=== PATIENT | male | born 1965 | race Caucasian/White ===

== ENCOUNTER → 2018-08-19 | Outpatient (CLI) | payer OTHER, MEDICARE ==
[~2018-08-19] MED LIST: GADOBENATE DIMEGLUMINE 1 ML IV ONE
[2018-08-19 15:03] LABS: BLOOD UREA NITROGEN 15 mg/dL (7-26); BUN/CREATININE RATIO 17 (6-25); CREATININE, SERUM 0.86 mg/dL (0.72-1.25); EST GLOMERULAR FILTRATION RATE > 60 ML/MIN (60-)
--- NOTE | 2018-08-19 19:46 | Diagnostic Imaging Report ---
EXAMINATION: MRI of the brain with and without contrast. HISTORY: Seizures and tremors in both hands COMPARISON: None TECHNIQUE: Pre-contrast: Sagittal T1; axial T1-IR, MPGR, DWI, FLAIR; Post-contrast: axial, sagittal, and coronal T1. Thin section coronals of the temporal lobes: FLAIR, T2. Intravenous contrast: 20 mL of MultiHance. IMAGE QUALITY: Adequate. FINDINGS: Mass: None. Enhancement: No abnormal enhancement of the brain or meninges. Encephalomalacia: No areas. Ischemic changes: None. Calcification/iron: No abnormal deposits. Hippocampi: Subtle increased signal and volume loss bilaterally, however the patient was then mild generalized parenchymal volume loss and the fornices are normal. Vascular: No obvious vascular malformation. Normal flow voids in major arteries and veins.[ Johnston matter: No cortical migration anomalies. Other: Brain volume: Mild generalized volume of Ventricles: No hydrocephalus or displacement. Foramen Magnum: Unremarkable. Sella: Unremarkable. Skull: No focal lesions. Sinuses/mastoids: No significant inflammatory disease. IMPRESSION: No mass or migration abnormalities. Subtle increased signal and volume loss of the hippocampi, correlation with EEG is advised. Signed by: Dr. Raquel Rushing M.D. on 08/19/2018 7:42 PM
== END ==
LOC: MRI 13:57 → EDSEX 14:00
PROVIDERS: ATTEND Internal Medicine Gastroenterology
DX: R25.1 Tremor, unspecified (principal); R56.9 Unspecified convulsions
CPT/HCPCS: 36415; 70553; 82565; 84520; A9577

== ENCOUNTER → 2018-08-22 | Day surgery (SDC) | payer OTHER, MEDICARE ==
[~2018-08-22] MED LIST changes: +ABILIFY5 MG PO; +ATORVASTATIN CA20 MG PO; +BENZTROPINE; +BYETTA10 MCG/0.0 SQ; +FENTANYL CITRATE/PF 100MCG/2 ML INJ ONE; +FLUCONAZOLE 200 MG/100 ML 100 ML IV ONE; -GADOBENATE DIMEGLUMINE 1 ML IV ONE; +HYOSCYAMINE 0.125 MG TAB ONE; +INVOKANA SQ; +LEVEMIR SQ; +METFORMIN HCL500 MG PO; +MIDAZOLAM HCL 2 MG/2 ML VIAL ONE; +PRAZOSIN HCL2 MG; +PROPOFOL IV EMULSION 10 MG/ML 50 ML VIAL ONE; +QUETIAPINE FUM100 MG PO; +SERTRALINE HCL100 MG PO
--- OUTSIDE RECORDS SUMMARY | 2018-08-22 09:20 | XMS REPORT | Summary of Care ---
Author Author [facility] Organization [facility] Address Unknown Phone Unavailable Encounter BUD Rubio(SHAW) [id number] Date(s): 02/07/17 - 02/08/17 [facility] [address] [place] [address]- Discharge Diagnosis: Headache Discharge Disposition: Home or Self Care Attending Physician: Beronica Luque DO Vital Signs 1 2 3 Most recent to oldest [Reference Range]: 172.72 cm (02/07/17 10:31 PM) Height 98.4 DegF (02/08/17 3:52 AM) 98.4 DegF (02/07/17 10:31 PM) Temperature Oral [96.4-99.1 DegF] 133/94 mmHg (02/07/17 10:31 PM) Blood Pressure [90-140/60-90 mmHg] 123 mmHg (02/08/17 5:43 AM) 134 mmHg (02/08/17 3:52 AM) Systolic Blood Pressure [90-140 mmHg] 97 mmHg *HI* (02/08/17 5:43 AM) 77 mmHg (02/08/17 3:52 AM) Diastolic Blood Pressure [60-90 mmHg] 18 BRMIN (02/08/17 5:43 AM) 16 BRMIN (02/08/17 3:52 AM) 18 BRMIN (02/07/17 10:31 PM) Respiratory Rate [14-20 BRMIN] 74 bpm (02/08/17 5:43 AM) 66 bpm (02/08/17 3:52 AM) 96 bpm (02/07/17 10:31 PM) Peripheral Pulse Rate [60-100 bpm] 113.636 kg (02/07/17 10:31 PM) Weight 38.09 m2 (02/07/17 10:31 PM) Body Mass Index Problem List Condition Effective Dates Status Health Status Informant DM (diabetes Active mellitus)(Confirmed) HTN Active (hypertension)(Confi rmed) Allergies, Adverse Reactions, Alerts Substance Reaction Severity Status NKDA Active Medications diphenhydrAMINE 12.5 mg, 0.25 mL, Route: IVP, Drug form: INJ, ONCE, Dosing Weight 113.636, kg, P riority: STAT, Start date: 02/07/17 22:38:00 CDT, Stop date: 02/07/17 22:38:00 C DT Notes: (Same as: Benadryl) Start Date: 02/07/17 Stop Date: 02/08/17 Status: Completed ketOROLAC 30 mg, 1 mL, Route: IVP, Drug form: INJ, ONCE, Dosing Weight 113.636, kg, Priori ty: STAT, Start date: 02/07/17 22:38:00 CDT, Stop date: 02/07/17 22:38:00 CDT Notes: (Same as:Toradol) IV bolus must be given >15 seconds. Give IM administration slowly and deeply into the muscle.Not for use > 4 days MEDICATION WASTE Product Size: 30 mgProduct Wasted: ___ mg Start Date: 02/07/17 Stop Date: 02/08/17 Status: Completed Reglan 10 mg, 2 mL, Route: IVP, Drug form: INJ, ONCE, Dosing Weight 113.636, kg, Priori ty: STAT, Start date: 02/07/17 22:38:00 CDT, Stop date: 02/07/17 22:38:00 CDT Notes: (Same as: Reglan) Start Date: 02/07/17 Stop Date: 02/08/17 Status: Completed Saline Flush 0.9% 10 mL, Route: IVP, Drug Form: INJ, kg, PRN, PRN Line Flush, Start date: 02/07/17 22:38:00 CDT, Duration: 30 day, Stop date: 03/09/17 22:37:00 CDT Notes: (Same as: BD Posiflush) Start Date: 02/07/17 Stop Date: 02/08/17 Status: Discontinued Sodium Chloride 0.9% (Bolus) IV 1,000 mL, 1000 ml/hr, Infuse Over: 1 hr, Route: IV, 1,000, Drug form: INJ, ONCE, Priority: STAT, Dosing Weight 113.636 kg, Start date: 02/07/17 22:38:00 CDT, Du ration: 1 doses or times, Stop date: 02/07/17 22:38:00 CDT Start Date: 02/07/17 Stop Date: 02/08/17 Status: Completed Results ELECTROLYTES Most recent to 1 oldest [Reference Range]: Sodium Lvl [135-145 132 mEq/L mEq/L] *LOW* (02/07/17 10:45 PM) Potassium Lvl 4.5 mEq/L [3.5-5.1 mEq/L] (02/07/17 10:45 PM) Chloride Lvl [95-109 99 mEq/L mEq/L] (02/07/17 10:45 PM) CO2 [24-32 mEq/L] 25 mEq/L (02/07/17 10:45 PM) AGAP [10.0-20.0 12.5 mEq/L mEq/L] (02/07/17 10:45 PM) CHEM PANEL Most recent to 1 oldest [Reference Range]: Creatinine Lvl 1.10 mg/dL [0.50-1.40 mg/dL] (02/07/17 10:45 PM) eGFR 77 mL/min/1.73m2 1 *NA* (02/07/17 10:45 PM) BUN [7-22 mg/dL] 11 mg/dL (02/07/17 10:45 PM) B/C Ratio [6-25] 10 (02/07/17 10:45 PM) Glucose Lvl [70-99 322 mg/dL mg/dL] *HI* (02/07/17 10:45 PM) Total Protein 7.5 g/dL [6.4-8.4 g/dL] (02/07/17 10:45 PM) Albumin Lvl [3.5-5.0 3.2 g/dL g/dL] *LOW* (02/07/17 10:45 PM) Globulin [2.7-4.2 4.3 g/dL g/dL] *HI* (02/07/17 10:45 PM) A/G Ratio [0.7-1.6] 0.7 (02/07/17 10:45 PM) Calcium Lvl 8.5 mg/dL [8.5-10.5 mg/dL] (02/07/17 10:45 PM) Phosphorus [2.5-4.5 3.5 mg/dL mg/dL] (02/07/17 10:45 PM) Magnesium Lvl 1.8 mg/dL [1.8-2.4 mg/dL] (02/07/17 10:45 PM) ALT [0-65 unit/L] 38 unit/L (02/07/17 10:45 PM) AST [0-37 unit/L] 25 unit/L (02/07/17 10:45 PM) Alk Phos [39-136 77 unit/L unit/L] (02/07/17 10:45 PM) Bili Total [0.2-1.3 0.4 mg/dL mg/dL] (02/07/17 10:45 PM) Lipase Lvl [73-393 99 unit/L unit/L] (02/07/17 10:45 PM) 1Result Comment: The eGFR is calculated using the CKD-EPI formula. In most young, healthy individuals the eGFR will be >90 mL/min/1.73m2. The eGFR declines with age. An eGFR of 60-89 may be normal in some populations, particularly the elderly, for whom the CKD-EPI formula has not been extensively validated. Use of the eGFR is not recommended in the following populations: Individuals with unstable creatinine concentrations, including patients and those with serious co-morbid conditions. Patients with extremes in muscle mass or diet. The data above are obtained from the National Kidney Disease Education Program ( NKDEP) which additionally recommends that when the eGFR is used in patients with extremes of body mass index for purposes of drug dosing, the eGFR should be mul tiplied by the estimated BMI. CARDIAC ENZYMES Most recent to 1 oldest [Reference Range]: Total CK [12-191 135 unit/L unit/L] (02/07/17 10:45 PM) CK MB [0.5-3.6 2.0 ng/mL ng/mL] (02/07/17 10:45 PM) CK MB Index 1.5 [0.0-2.5] (02/07/17 10:45 PM) Troponin-I <0.02 ng/mL [0.00-0.40 ng/mL] (02/07/17 10:45 PM) HEMATOLOGY Most recent to 1 oldest [Reference Range]: WBC [3.7-10.4 K/CMM] 5.2 K/CMM (02/07/17 10:45 PM) RBC [4.70-6.10 5.92 M/CMM M/CMM] (02/07/17 10:45 PM) Hgb [14.0-18.0 g/dL] 17.1 g/dL (02/07/17 10:45 PM) Hct [42.0-54.0 %] 49.5 % (02/07/17 10:45 PM) MCV [80.0-94.0 fL] 83.6 fL (02/07/17 10:45 PM) MCH [27.0-31.0 pg] 28.9 pg (02/07/17 10:45 PM) MCHC [32.0-36.0 34.6 g/dL g/dL] (02/07/17 10:45 PM) RDW [11.5-14.5 %] 13.5 % (02/07/17 10:45 PM) Platelet [133-450 174 K/CMM K/CMM] (02/07/17 10:45 PM) MPV [7.4-10.4 fL] 9.7 fL (02/07/17 10:45 PM) Segs [45.0-75.0 %] 38.8 % *LOW* (02/07/17 10:45 PM) Lymphocytes 44.2 % [20.0-40.0 %] *HI* (02/07/17 10:45 PM) Monocytes [2.0-12.0 11.4 % %] (02/07/17 10:45 PM) Eosinophils [0.0-4.0 4.5 % %] *HI* (02/07/17 10:45 PM) Basophils [0.0-1.0 1.1 % %] *HI* (02/07/17 10:45 PM) Segs-Bands # 2.0 K/CMM [1.5-8.1 K/CMM] (02/07/17 10:45 PM) Lymphocytes # 2.3 K/CMM [1.0-5.5 K/CMM] (02/07/17 10:45 PM) Monocytes # [0.0-0.8 0.6 K/CMM K/CMM] (02/07/17 10:45 PM) Eosinophils # 0.2 K/CMM [0.0-0.5 K/CMM] (02/07/17 10:45 PM) Basophils # [0.0-0.2 0.1 K/CMM K/CMM] (02/07/17 10:45 PM) Immunizations No data available for this section Procedures Procedure Date Related Diagnosis Body Site Appendectomy Social History Social History Type Response Smoking Status Reg Smoking Cessation Counseling No; Never smoker; Exposure to Tobacco Smoke None; Cigarette Smoking Last 365 Days No Assessment and Plan No data available for this section
--- OUTSIDE RECORDS SUMMARY | 2018-08-22 09:20 | XMS REPORT | Summary of Care ---
Author Author [facility] Organization [facility] Address Unknown Phone Unavailable Encounter BUD Rubio(SHAW) [id number] Date(s): 02/27/17 - 02/28/17 [facility] [address] [place] [address]- [phone] Discharge Diagnosis: Hyperglycemia Discharge Disposition: Home or Self Care Attending Physician: Ammy Alvarez DO Vital Signs Most recent to 1 2 oldest [Reference Range]: Temperature Oral 97.7 DegF 98.2 DegF [96.4-99.1 DegF] (02/28/17 2:55 AM) (02/27/17 9:58 PM) Blood Pressure 126/85 mmHg 143/77 mmHg [90-140/60-90 mmHg] (02/28/17 2:55 AM) *HI* (02/27/17 9:58 PM) Respiratory Rate 18 BRMIN 20 BRMIN [14-20 BRMIN] (02/28/17 2:55 AM) (02/27/17 9:58 PM) Peripheral Pulse 65 bpm 67 bpm Rate [60-100 bpm] (02/28/17 2:55 AM) (02/27/17 9:58 PM) Problem List Condition Effective Dates Status Health Status Informant DM (diabetes Active mellitus)(Confirmed) HTN Active (hypertension)(Confi rmed) Allergies, Adverse Reactions, Alerts Substance Reaction Severity Status NKDA Active Medications Sodium Chloride 0.9% (Bolus) IV 1,000 mL, 1000 ml/hr, Infuse Over: 1 hr, Route: IV, 1,000, Drug form: INJ, ONCE, Priority: STAT, Dosing Weight 113.636 kg, Start date: 02/28/17 1:22:00 CDT, Dur ation: 1 doses or times, Stop date: 02/28/17 1:22:00 CDT Start Date: 02/28/17 Stop Date: 02/28/17 Status: Completed Results ELECTROLYTES Most recent to 1 oldest [Reference Range]: Sodium Lvl [135-145 137 mEq/L mEq/L] (02/28/17 12:49 AM) Potassium Lvl 4.5 mEq/L [3.5-5.1 mEq/L] (02/28/17 12:49 AM) Chloride Lvl [95-109 101 mEq/L mEq/L] (02/28/17 12:49 AM) CO2 [24-32 mEq/L] 30 mEq/L (02/28/17 12:49 AM) AGAP [10.0-20.0 10.5 mEq/L mEq/L] (02/28/17 12:49 AM) CHEM PANEL Most recent to 1 oldest [Reference Range]: Creatinine Lvl 0.93 mg/dL [0.50-1.40 mg/dL] (02/28/17 12:49 AM) eGFR 95 mL/min/1.73m2 1 *NA* (02/28/17 12:49 AM) BUN [7-22 mg/dL] 13 mg/dL (02/28/17 12:49 AM) B/C Ratio [6-25] 14 (02/28/17 12:49 AM) Glucose Lvl [70-99 288 mg/dL mg/dL] *HI* (02/28/17 12:49 AM) Total Protein 8.5 g/dL [6.4-8.4 g/dL] *HI* (02/28/17 12:49 AM) Albumin Lvl [3.5-5.0 3.8 g/dL g/dL] (02/28/17 12:49 AM) Globulin [2.7-4.2 4.7 g/dL g/dL] *HI* (02/28/17 12:49 AM) A/G Ratio [0.7-1.6] 0.8 (02/28/17 12:49 AM) Calcium Lvl 9.3 mg/dL [8.5-10.5 mg/dL] (02/28/17 12:49 AM) ALT [0-65 unit/L] 40 unit/L (02/28/17 12:49 AM) AST [0-37 unit/L] 15 unit/L (02/28/17 12:49 AM) Alk Phos [39-136 92 unit/L unit/L] (02/28/17 12:49 AM) Bili Total [0.2-1.3 0.5 mg/dL mg/dL] (02/28/17 12:49 AM) 1Result Comment: The eGFR is calculated using [...] be mul tiplied by the estimated BMI. HEMATOLOGY Most recent to 1 oldest [Reference Range]: WBC [3.7-10.4 K/CMM] 5.1 K/CMM (02/28/17 12:49 AM) RBC [4.70-6.10 6.50 M/CMM M/CMM] *HI* (02/28/17 12:49 AM) Hgb [14.0-18.0 g/dL] 18.5 g/dL *HI* (02/28/17 12:49 AM) Hct [42.0-54.0 %] 53.3 % (02/28/17 12:49 AM) MCV [80.0-94.0 fL] 82.0 fL (02/28/17 12:49 AM) MCH [27.0-31.0 pg] 28.5 pg (02/28/17 12:49 AM) MCHC [32.0-36.0 34.8 g/dL g/dL] (02/28/17 12:49 AM) RDW [11.5-14.5 %] 13.3 % (02/28/17 12:49 AM) Platelet [133-450 193 K/CMM K/CMM] (02/28/17 12:49 AM) MPV [7.4-10.4 fL] 9.4 fL (02/28/17 12:49 AM) Segs [45.0-75.0 %] 51.7 % (02/28/17 12:49 AM) Lymphocytes 33.6 % [20.0-40.0 %] (02/28/17 12:49 AM) Monocytes [2.0-12.0 10.5 % %] (02/28/17 12:49 AM) Eosinophils [0.0-4.0 3.2 % %] (02/28/17 12:49 AM) Basophils [0.0-1.0 1.0 % %] (02/28/17 12:49 AM) Segs-Bands # 2.7 K/CMM [1.5-8.1 K/CMM] (02/28/17 12:49 AM) Lymphocytes # 1.7 K/CMM [1.0-5.5 K/CMM] (02/28/17 12:49 AM) Monocytes # [0.0-0.8 0.5 K/CMM K/CMM] (02/28/17 12:49 AM) Eosinophils # 0.2 K/CMM [0.0-0.5 K/CMM] (02/28/17 12:49 AM) Basophils # [0.0-0.2 0.1 K/CMM K/CMM] (02/28/17 12:49 AM) Immunizations No data available for this section Procedures Procedure Date Related Diagnosis Body Site Appendectomy Social History Social History Type Response Smoking Status Never smoker; Exposure to Tobacco Smoke None; Cigarette Smoking Last 365 Days No; Reg Smoking Cessation Counseling No Assessment and Plan No data available for this section
--- OUTSIDE RECORDS SUMMARY | 2018-08-22 09:20 | XMS REPORT | Continuity of Care Document ---
Author Author Javi orlando [facility] Interface Address Unknown Phone Unavailable Problems Problem Status Onset Date Classification Date Reported Comments Source Discharge Diagnosis: Otitis externa 03/30/2017 04/02/2017 [facility] EAR PAIN Active 03/29/2017 [facility] Discharge Diagnosis: Hyperglycemia 02/28/2017 03/03/2017 [facility] HYPERGLYCEMIA Active 02/27/2017 [facility] Discharge Diagnosis: Headache 02/08/2017 02/11/2017 [facility] DIZZINESS Active 02/07/2017 [facility] DM (<span ID="[id number]">Confirmed</span>) Active Problem 04/02/2017 [facility] HTN (<span ID="[id number]">Confirmed</span>) Active Problem 04/02/2017 [facility] Medications Medication Details Route Status Patient Instructions Ordering Provider Order Date Source Cipro HC otic suspension 3 drp, RIGHT EAR, BID, X 7 day, # 10 ml, 0 Refill(s) Active 03/30/2017 [facility] Tylenol with Codeine #4 oral tablet 1 - 2 tab, PO, Q6H, PRN Pain, X 3 day, # 20 tab, 0 Refill(s) Active 03/30/2017 [facility] ibuprofen 800 mg oral tablet 800 mg=1 tab, PO, Q6H, PRN Fever or Pain, Take with food, X 10 day, # 40 tab, 0 Refill(s) Active 03/30/2017 [facility] acetaminophen-hydrocodone 325 mg-10 mg oral tablet 1 tab, Route: PO, Dosing Weight 113.636, kg, ONCE, STAT, Start date: 03/30/17 0:36:00 CDT, Stop date: 03/30/17 0:36:00 CDT Inactive 03/30/2017 [facility] Sodium Chloride 0.9% (Bolus) IV 1,000 mL, 1000 ml/hr, Infuse Over: 1 hr, Route: IV, 1,000, Drug form: INJ, ONCE, Priority: STAT, Dosing Weight 113.636 kg, Start date: 02/28/17 1:22:00 CDT, Duration: 1 doses or times, Stop date: 02/28/17 1:22:00 CDT Inactive 02/28/2017 [facility] Sodium Chloride 0.9% (Bolus) IV 1,000 mL, 1000 ml/hr, Infuse Over: 1 hr, Route: IV, 1,000, Drug form: INJ, ONCE, Priority: STAT, Dosing Weight 113.636 kg, Start date: 02/07/17 22:38:00 CDT, Duration: 1 doses or times, Stop date: 02/07/17 22:38:00 CDT No Longer Active 02/08/2017 [facility] Reglan 10 mg, 2 mL, Route: IVP, Drug form: INJ, ONCE, Dosing Weight 113.636, kg, Priority: STAT, Start date: 02/07/17 22:38:00 CDT, Stop date: 02/07/17 22:38:00 CDTNotes: (Same as: Reglan) No Longer Active 02/08/2017 [facility] Ketorolac 30 mg, 1 mL, Route: IVP, Drug form: INJ, ONCE, Dosing Weight 113.636, kg, Priority: STAT, Start date: 02/07/17 22:38:00 CDT, Stop date: 02/07/17 22:38:00 CDTNotes: (Same as:Toradol) IV bolus must be given >15 seconds. Give IM administration slowly and deeply into the muscle. Not for use > 4 days MEDICATION WASTE Product Size: 30 mg Product Wasted: ___ mg No Longer Active 02/08/2017 [facility] Diphenhydramine 12.5 mg, 0.25 mL, Route: IVP, Drug form: INJ, ONCE, Dosing Weight 113.636, kg, Priority: STAT, Start date: 02/07/17 22:38:00 CDT, Stop date: 02/07/17 22:38:00 CDTNotes: (Same as: Benadryl) No Longer Active 02/08/2017 [facility] Saline Flush 0.9% 10 mL, Route: IVP, Drug Form: INJ, kg, PRN, PRN Line Flush, Start date: 02/07/17 22:38:00 CDT, Duration: 30 day, Stop date: 03/09/17 22:37:00 CDTNotes: (Same as: BD Posiflush) No Longer Active 02/08/2017 [facility] Allergies, Adverse Reactions, Alerts Substance Category Reaction Severity Reaction type Status Date Reported Comments Source Immunizations Immunization Date Given Site Status Last Updated Comments Source Results Order Name Results Value Reference Range Date Interpretation Comments Source CHEM PANEL eGFR 95 mL/min/1.73m2 02/28/2017 Result Comment: The eGFR is calculated using the [...] from the National Kidney Disease Education Program (NKDEP) which additionally recommends that when the eGFR is used in patients with extremes of body mass index for purposes of drug dosing, the eGFR should be multiplied by the estimated BMI. [facility] CHEM PANEL Albumin Lvl 3.8 g/dL 3.5 - 5.0 02/28/2017 [facility] CHEM PANEL ALT 40 unit/L 0 - 65 02/28/2017 [facility] CHEM PANEL CO2 30 meq/L 24 - 32 02/28/2017 [facility] CHEM PANEL Calcium Lvl 9.3 mg/dL 8.5 - 10.5 02/28/2017 [facility] CHEM PANEL Total Protein 8.5 g/dL 6.4 - 8.4 02/28/2017 [facility] CHEM PANEL AST 15 unit/L 0 - 37 02/28/2017 [facility] CHEM PANEL Alk Phos 92 unit/L 39 - 136 02/28/2017 [facility] CHEM PANEL Bili Total 0.5 mg/dL 0.2 - 1.3 02/28/2017 [facility] CHEM PANEL Glucose Lvl 288 mg/dL 70 - 99 02/28/2017 [facility] CHEM PANEL BUN 13 mg/dL 7 - 22 02/28/2017 [facility] CHEM PANEL Sodium Lvl 137 meq/L 135 - 145 02/28/2017 [facility] CHEM PANEL Potassium Lvl 4.5 meq/L 3.5 - 5.1 02/28/2017 [facility] CHEM PANEL Chloride Lvl 101 meq/L 95 - 109 02/28/2017 [facility] CHEM PANEL Creatinine Lvl 0.93 mg/dL 0.50 - 1.40 02/28/2017 [facility] CHEM PANEL Globulin 4.7 g/dL 2.7 - 4.2 02/28/2017 [facility] CHEM PANEL A/G Ratio 0.8 0.7 - 1.6 02/28/2017 [facility] CHEM PANEL AGAP 10.5 meq/L 10.0 - 20.0 02/28/2017 [facility] CHEM PANEL B/C Ratio 14 6 - 25 02/28/2017 [facility] HEMATOLOGY Eosinophils # 0.2 K/CMM 0.0 - 0.5 02/28/2017 [facility] HEMATOLOGY Basophils # 0.1 K/CMM 0.0 - 0.2 02/28/2017 [facility] HEMATOLOGY Monocytes # 0.5 K/CMM 0.0 - 0.8 02/28/2017 [facility] HEMATOLOGY Lymphocytes # 1.7 K/CMM 1.0 - 5.5 02/28/2017 [facility] HEMATOLOGY Lymphocytes 33.6 % 20.0 - 40.0 02/28/2017 [facility] HEMATOLOGY Segs 51.7 % 45.0 - 75.0 02/28/2017 [facility] HEMATOLOGY Basophils 1.0 % 0.0 - 1.0 02/28/2017 [facility] HEMATOLOGY Segs-Bands # 2.7 K/CMM 1.5 - 8.1 02/28/2017 [facility] HEMATOLOGY Eosinophils 3.2 % 0.0 - 4.0 02/28/2017 [facility] HEMATOLOGY Monocytes 10.5 % 2.0 - 12.0 02/28/2017 [facility] HEMATOLOGY RDW 13.3 % 11.5 - 14.5 02/28/2017 [facility] HEMATOLOGY MCH 28.5 pg 27.0 - 31.0 02/28/2017 [facility] HEMATOLOGY MCV 82.0 fL 80.0 - 94.0 02/28/2017 [facility] HEMATOLOGY Hct 53.3 % 42.0 - 54.0 02/28/2017 [facility] HEMATOLOGY RBC 6.50 M/CMM 4.70 - 6.10 02/28/2017 [facility] HEMATOLOGY Hgb 18.5 g/dL 14.0 - 18.0 02/28/2017 [facility] HEMATOLOGY WBC 5.1 K/CMM 3.7 - 10.4 02/28/2017 [facility] HEMATOLOGY MPV 9.4 fL 7.4 - 10.4 02/28/2017 [facility] HEMATOLOGY Platelet 193 K/CMM 133 - 450 02/28/2017 [facility] HEMATOLOGY MCHC 34.8 g/dL 32.0 - 36.0 02/28/2017 [facility] CARDIAC ENZYMES CK MB Index 1.5 0.0 - 2.5 02/08/2017 [facility] CARDIAC ENZYMES CK MB 2.0 ng/mL 0.5 - 3.6 02/08/2017 [facility] CARDIAC ENZYMES Troponin-I null 0.00 - 0.40 02/08/2017 [facility] CARDIAC ENZYMES Total CK 135 unit/L 12 - 191 02/08/2017 [facility] CHEM PANEL Magnesium Lvl 1.8 mg/dL 1.8 - 2.4 02/08/2017 [facility] CHEM PANEL Lipase Lvl 99 unit/L 73 - 393 02/08/2017 [facility] CHEM PANEL Phosphorus 3.5 mg/dL 2.5 - 4.5 02/08/2017 [facility] CHEM PANEL eGFR 77 mL/min/1.73m2 02/08/2017 Result Comment: The eGFR is calculated using the [...] from the National Kidney Disease Education Program (NKDEP) which additionally recommends that when the eGFR is used in patients with extremes of body mass index for purposes of drug dosing, the eGFR should be multiplied by the estimated BMI. [facility] CHEM PANEL A/G Ratio 0.7 0.7 - 1.6 02/08/2017 [facility] CHEM PANEL ALT 38 unit/L 0 - 65 02/08/2017 [facility] CHEM PANEL Calcium Lvl 8.5 mg/dL 8.5 - 10.5 02/08/2017 [facility] CHEM PANEL Total Protein 7.5 g/dL 6.4 - 8.4 02/08/2017 [facility] CHEM PANEL AST 25 unit/L 0 - 37 02/08/2017 [facility] CHEM PANEL Albumin Lvl 3.2 g/dL 3.5 - 5.0 02/08/2017 [facility] CHEM PANEL Alk Phos 77 unit/L 39 - 136 02/08/2017 [facility] CHEM PANEL Globulin 4.3 g/dL 2.7 - 4.2 02/08/2017 [facility] CHEM PANEL Bili Total 0.4 mg/dL 0.2 - 1.3 02/08/2017 [facility] CHEM PANEL AGAP 12.5 meq/L 10.0 - 20.0 02/08/2017 [facility] CHEM PANEL B/C Ratio 10 6 - 25 02/08/2017 [facility] CHEM PANEL Creatinine Lvl 1.10 mg/dL 0.50 - 1.40 02/08/2017 [facility] CHEM PANEL Glucose Lvl 322 mg/dL 70 - 99 02/08/2017 [facility] CHEM PANEL BUN 11 mg/dL 7 - 22 02/08/2017 [facility] CHEM PANEL Potassium Lvl 4.5 meq/L 3.5 - 5.1 02/08/2017 [facility] CHEM PANEL Chloride Lvl 99 meq/L 95 - 109 02/08/2017 [facility] CHEM PANEL Sodium Lvl 132 meq/L 135 - 145 02/08/2017 [facility] CHEM PANEL CO2 25 meq/L 24 - 32 02/08/2017 [facility] HEMATOLOGY Basophils # 0.1 K/CMM 0.0 - 0.2 02/08/2017 [facility] HEMATOLOGY Lymphocytes # 2.3 K/CMM 1.0 - 5.5 02/08/2017 [facility] HEMATOLOGY Eosinophils # 0.2 K/CMM 0.0 - 0.5 02/08/2017 [facility] HEMATOLOGY Monocytes # 0.6 K/CMM 0.0 - 0.8 02/08/2017 [facility] HEMATOLOGY Basophils 1.1 % 0.0 - 1.0 02/08/2017 [facility] HEMATOLOGY Segs-Bands # 2.0 K/CMM 1.5 - 8.1 02/08/2017 [facility] HEMATOLOGY Monocytes 11.4 % 2.0 - 12.0 02/08/2017 [facility] HEMATOLOGY Eosinophils 4.5 % 0.0 - 4.0 02/08/2017 [facility] HEMATOLOGY Lymphocytes 44.2 % 20.0 - 40.0 02/08/2017 [facility] HEMATOLOGY Segs 38.8 % 45.0 - 75.0 02/08/2017 [facility] MPV 9.7 fL 7.4 - 10.4 02/08/2017 [facility] MCV 83.6 fL 80.0 - 94.0 02/08/2017 [facility] MCH 28.9 pg 27.0 - 31.0 02/08/2017 [facility] Platelet 174 K/CMM 133 - 450 02/08/2017 [facility] MCHC 34.6 g/dL 32.0 - 36.0 02/08/2017 [facility] RDW 13.5 % 11.5 - 14.5 02/08/2017 [facility] Hct 49.5 % 42.0 - 54.0 02/08/2017 [facility] Hgb 17.1 g/dL 14.0 - 18.0 02/08/2017 [facility] WBC 5.2 K/CMM 3.7 - 10.4 02/08/2017 [facility] RBC 5.92 M/CMM 4.70 - 6.10 02/08/2017 [facility] Brain wo contrast CT Brain wo contrast CT EXAM: CT BRAIN WITHOUT CONTRAST DATE: 02/07/2017 10:38 PM CDT INDICATION: Headache. COMPARISON: None. TECHNIQUE: CT images were obtained from the foramen magnum to the vertex without intravenous contrast on a multidetector CT. Coronal and sagittal reconstructions were also provided for review. CT radiation dose DLP: 1024.06 mGy-cm FINDINGS: No acute intracranial hemorrhage, midline shift, or mass effect is identified. The schofield-white matter differentiation is preserved. The ventricles and sulci are within normal limits, without evidence for hydrocephalus. The orbits, paranasal sinuses, and mastoid air cells are unremarkable. The calvarium and skull base are intact. IMPRESSION: No acute intracranial abnormality. SL: [id number] 02/08/2017 - - Read by: Torrey Lang MD Dictated Date/time: 02/08/17 01:48 Electronically Signed by: Torrey Lang MD 02/08/17 01:49 FINAL REPORT [facility] Chest 1view DX Chest 1view DX Patient Name: YOVANI REYNA : 1965; Age: 51 years y/o Male MR: [id number] Study: Chest 1view DX 02/07/2017 10:38 PM CDT Ordering Physician: Leni Allison Comparison: None Clinical Indication: Chest pain - chest pain; A few scattered interstitial opacities and granulomatous calcifications are noted bilaterally, nonspecific, likely chronic. The cardiomediastinal silhouette is normal. There is no acute consolidation or pleural fluid collection noted. IMPRESSION:No acute cardiopulmonary process. SL: [id number]- 02/07/2017 - - Read by: Weston Florez MD Dictated Date/time: 02/07/17 23:09 Electronically Signed by: Weston Florez MD 02/07/17 23:09 FINAL REPORT [facility] Vital Signs Vital Sign Value Date Comments Source Systolic (mm Hg) 138 03/30/2017 [facility] Diastolic (mm Hg) 84 03/30/2017 [facility] Respitory Rate 18 03/30/2017 [facility] Temperature Oral (F) 98.3 F 03/30/2017 [facility] Heart Rate 86 03/30/2017 [facility] Systolic (mm Hg) 142 03/30/2017 [facility] Diastolic (mm Hg) 91 03/30/2017 [facility] Temperature Oral (F) 98.1 F 03/30/2017 [facility] Weight 113.636 03/30/2017 [facility] Respitory Rate 19 03/30/2017 [facility] Heart Rate 88 03/30/2017 [facility] Respitory Rate 18 02/28/2017 [facility] Systolic (mm Hg) 126 02/28/2017 [facility] Diastolic (mm Hg) 85 02/28/2017 [facility] Temperature Oral (F) 97.7 F 02/28/2017 [facility] Heart Rate 65 02/28/2017 [facility] Temperature Oral (F) 98.2 F 02/28/2017 [facility] Systolic (mm Hg) 143 02/28/2017 [facility] Diastolic (mm Hg) 77 02/28/2017 [facility] Respitory Rate 20 02/28/2017 [facility] Heart Rate 67 02/28/2017 [facility] Heart Rate 74 02/08/2017 [facility] Respitory Rate 18 02/08/2017 [facility] Diastolic (mm Hg) 97 02/08/2017 [facility] Systolic (mm Hg) 123 02/08/2017 [facility] Heart Rate 66 02/08/2017 [facility] Systolic (mm Hg) 134 02/08/2017 [facility] Respitory Rate 16 02/08/2017 [facility] Diastolic (mm Hg) 77 02/08/2017 [facility] Temperature Oral (F) 98.4 F 02/08/2017 [facility] Weight 113.636 02/08/2017 [facility] Height 172.72 cm 02/08/2017 [facility] Respitory Rate 18 02/08/2017 [facility] Temperature Oral (F) 98.4 F 02/08/2017 [facility] Systolic (mm Hg) 133 02/08/2017 [facility] Diastolic (mm Hg) 94 02/08/2017 [facility] Heart Rate 96 02/08/2017 [facility] BMI Calculated 38.09 02/08/2017 [facility] Encounters Location Location Details Encounter Type Encounter Number Reason For Visit Attending Provider ADM Date DC Date Status Source [facility] Emergency [id number] Beronica Luque 02/08/2017 02/08/2017 [facility] Emergency [id number] Ammy Alvarez 02/28/2017 02/28/2017 [facility] Emergency [id number] Familia JacksonSona 03/30/2017 03/30/2017 [facility] Procedures Procedure Code Date Perfomer Comments Source Appendectomy [id number] [facility]
--- OUTSIDE RECORDS SUMMARY | 2018-08-22 09:21 | XMS REPORT ---
Author Author [facility] Address Unknown Phone Unavailable Care Team Providers Care Transverse Abdominal Muscle Nurse Name Role Phone STEPHANIE MORELAND Unavailable Unavailable Problems This patient has no known problems. Allergies, Adverse Reactions, Alerts This patient has no known allergies or adverse reactions. Medications This patient has no known medications. Results Test Description Test Time Test Comments Text Results Atomic Results Result Comments MRI BRAIN WOW 2018-08-19 19:36:00 [place] [address] Patient Name: ENRIQUE REYNA MR #: [id number] : 1965 Age/Sex: 53/M Req #: [id number] [facility] Physician: Ordered by: STEPHANIE MORELAND MD Report #: [id number] Location: MRI Room/Bed: Procedure: [id number] MRI/MRI BRAIN WOW Exam Date: Exam Time: REPORT STATUS: Signed EXAMINATION: MRI of the brain with and without contrast. HISTORY: Seizures and tremors in both hands COMPARISON: None TECHNIQUE: Pre-contrast: Sagittal T1; axial T1-IR, MPGR, DWI, FLAIR; Post-contrast: axial, sagittal, and coronal T1. Thin section coronals of the temporal lobes: FLAIR, T2. Intravenous contrast: 20 mL of MultiHance. IMAGE QUALITY: Adequate. FINDINGS: Mass: None. Enhancement: No abnormal enhancement of the brain or meninges. Encephalomalacia: No areas. Ischemic changes: None. Calcification/iron: No abnormal deposits. Hippocampi: Subtle increased signal and volume loss bilaterally, however the patient was then mild generalized parenchymal volume loss and the fornices are normal. Vascular: No obvious vascular malformation. Normal flow voids in major arteries and veins.[ Johnston matter: No cortical migration anomalies. Other: Brain volume: Mild generalized volume of Ventricles: No hydrocephalus or displacement. Foramen Magnum: Unremarkable. Sella: Unremarkable. Skull: No focal lesions. Sinuses/mastoids: No significant inflammatory disease. IMPRESSION: No mass or migration abnormalities. Subtle increased signal and volume loss of the hippocampi, correlation with EEG is advised. Signed by: Dr. Lauren Rushing M.D. on 08/19/2018 7:42 PM Dictated By: LAUREN RUSHING MD 41 Transcribed By: PARK on 08/19/181941 COPY TO: STEPHANIE MORELAND MD
--- OUTSIDE RECORDS SUMMARY | 2018-08-22 09:21 | XMS REPORT | Summary of Care ---
Author Author [facility] Address Unknown Phone Unavailable Encounter BUD Rubio(SHAW) [id number] Date(s): 03/29/17 - 03/30/17 [facility] [address] [place] [address]- [phone] Discharge Diagnosis: Otitis externa Discharge Disposition: Home or Self Care Attending Physician: Familia Magallanes MD Vital Signs Most recent to 1 2 oldest [Reference Range]: Temperature Oral 98.3 DegF 98.1 DegF [96.4-99.1 DegF] (03/30/17 1:30 AM) (03/29/17 10:16 PM) Blood Pressure 138/84 mmHg 142/91 mmHg [90-140/60-90 mmHg] (03/30/17 1:30 AM) *HI* (03/29/17 10:16 PM) Respiratory Rate 18 BRMIN 19 BRMIN [14-20 BRMIN] (03/30/17 1:30 AM) (03/29/17 10:16 PM) Peripheral Pulse 86 bpm 88 bpm Rate [60-100 bpm] (03/30/17 1:30 AM) (03/29/17 10:16 PM) Weight 113.636 kg (03/29/17 10:16 PM) Problem List Condition Effective Dates Status Health Status Informant DM (diabetes Active mellitus)(Confirmed) HTN Active (hypertension)(Confi rmed) Allergies, Adverse Reactions, Alerts Substance Reaction Severity Status NKDA Active Medications acetaminophen-hydrocodone 325 mg-10 mg oral tablet 1 tab, Route: PO, Dosing Weight 113.636, kg, ONCE, STAT, Start date: 03/30/17 0: 36:00 CDT, Stop date: 03/30/17 0:36:00 CDT Start Date: 03/30/17 Stop Date: 03/30/17 Status: Completed Cipro HC otic suspension 3 drp, RIGHT EAR, BID, X 7 day, # 10 ml, 0 Refill(s) Start Date: 03/30/17 Stop Date: 04/06/17 Status: Ordered ibuprofen 800 mg oral tablet 800 mg=1 tab, PO, Q6H, PRN Fever or Pain, Take with food, X 10 day, # 40 tab, 0 Refill(s) Start Date: 03/30/17 Stop Date: 04/09/17 Status: Ordered Tylenol with Codeine #4 oral tablet 1 - 2 tab, PO, Q6H, PRN Pain, X 3 day, # 20 tab, 0 Refill(s) Start Date: 03/30/17 Stop Date: 04/02/17 Status: Ordered Results No data available for this section Immunizations No data available for this section Procedures Procedure Date Related Diagnosis Body Site Appendectomy Social History Social History Type Response Smoking Status Never smoker; Exposure to Tobacco Smoke None; Cigarette Smoking Last 365 Days No; Reg Smoking Cessation Counseling No Assessment and Plan No data available for this section
[2018-08-22 12:57] LABS: WBC,FECAL (FECAL LACTOFERRIN) NEGATIVE (NEGATIVE)
[2018-08-22 13:42] VITALS: BP 115/91
[2018-08-22 14:42] LABS: C DIFFICILE TOXIN A&B AMP PROB NEGATIVE (NEGATIVE)
--- NOTE | 2018-08-22 20:14 | Operative Report ---
DATE OF PROCEDURE: 08/22/2018 SURGEON: Donn Bruner MD PROCEDURES: EGD with esophageal dilatation, esophageal brushings and biopsies, and colonoscopy with polypectomy and biopsies. INDICATIONS FOR EGD: Dysphagia. INDICATIONS FOR COLONOSCOPY: Colorectal cancer screening, diarrhea, fecal incontinence. MEDICATIONS: The patient was done under MAC, please see anesthesiologist's note. PROCEDURE IN DETAIL: With the patient in left lateral decubitus position, a flexible fiberoptic Olympus gastroscope was introduced into the esophagus under direct visualization without any difficulty. There were some scattered whitish plaques noted throughout the esophagus and brushings were obtained and sent to stain for Nilsa. Esophagus was then dilated to size 52-[place]. The scope was then advanced with ease into the stomach traversing a small sliding hiatal hernia. Mucosa overlying the antrum and the body revealed some patchy intense erythema and [id number] edema, and biopsies were obtained and sent to stain for H pylori. The pylorus was of normal contour and shape, was intubated with ease and the scope was advanced all the way to the second portion of the duodenum. The scope was then withdrawn slowly and biopsies were obtained from the second portion as well as from the duodenal bulb to rule out sprue. The scope was then withdrawn back into the stomach and retroflexed, and the mucosa overlying the fundus and the cardia appeared to be within normal limits. The scope was then straightened out, it was subsequently withdrawn. The patient tolerated the procedure well. IMPRESSION: 1. Rule out Nilsa esophagitis. 2. Esophagus dilated to size 52-[place]. 3. Small sliding hiatal hernia. 4. Gastritis, biopsied. Biopsies sent to stain for Helicobacter pylori. 5. Rule out sprue. PLAN: Follow up histology. Initiate Protonix 40 mg one p.o. q.a.m. before meals. The patient was then turned around and after adequate lubrication of the anal canal, a flexible fiberoptic Olympus colonoscope was inserted into the rectum with ease and advanced all the way to the cecum. An approximately 4 mm sessile polyp was snared from the cecum and the polypectomy site was hemoclipped x2. The cecum otherwise appeared to be within normal limits. The ileocecal valve was intubated and the scope was advanced into the terminal ileum. Biopsies were obtained. The scope was then withdrawn back into the colon. It was then withdrawn slowly and the mucosa overlying the ascending and the transverse appeared to be within normal limits. There were some mild inflammatory changes noted in the left colon, multiple random biopsies were obtained. One polyp was snared and one polyp was hot biopsied from the descending colon. One polyp was snared and one polyp was hot biopsied from the sigmoid colon. The scope was then retroflexed into the distal rectum. Small internal hemorrhoids were noted, none of which was actively bleeding. The scope was then straightened out, it was subsequently withdrawn. The patient tolerated the procedure well. An adequate stool specimen was secured and sent for the appropriate stool studies. IMPRESSION: 1. Cecal polyp snared, hemoclipped x2. 2. Mild patchy left-sided colitis. 3. Descending colon polyps x2, one snared and one hot biopsied. 4. Sigmoid colon polyps x2, one snared and one hot biopsied. 5. Proctitis, biopsied. 6. Internal hemorrhoids, none actively bleeding. PLAN: Follow up histology. Follow up stool studies. Initiate VSL #3 one p.o. daily and Bentyl 10 mg one p.o. t.i.d. Donn Bruner MD [facility] [place][id number] cc: Manpreet Rayo MD
== END | disposition home or self-care (01) ==
LOC: EDSEX → OR 09:18
PROVIDERS: ATTEND Internal Medicine Gastroenterology
DX: R13.19 Other dysphagia (principal); D12.2 Benign neoplasm of ascending colon; D12.5 Benign neoplasm of sigmoid colon; K29.70 Gastritis, unspecified, without bleeding; K51.50 Left sided colitis without complications; K44.9 Diaphragmatic hernia without obstruction or gangrene; K22.8 Other specified diseases of esophagus; K62.89 Other specified diseases of anus and rectum; K64.8 Other hemorrhoids; K21.9 Gastro-esophageal reflux disease without esophagitis; E10.9 Type 1 diabetes mellitus without complications; E78.6 Lipoprotein deficiency; I10 Essential (primary) hypertension; R25.1 Tremor, unspecified; R31.29 Other microscopic hematuria; F32.9 Major depressive disorder, single episode, unspecified; Z88.8 Allergy status to other drugs, medicaments and biological substances; Z79.4 Long term (current) use of insulin; Z68.36 Body mass index [BMI] 36.0-36.9, adult; Z86.69 Personal history of other diseases of the nervous system and sense organs
CPT/HCPCS: 36415; 43239; 43450; 45380; 45384; 45385; 82948; 83630; 83993; 87045; 87177; 87328; 87493; 93005; J1450; J2250; J2704; 43235